=== PATIENT | female | born 1995 | race Caucasian/White ===

== ENCOUNTER 2025-01-22 19:03 | Emergency (ER) | payer OTHER ==
[~2025-01-22] VITALS: Ht 162.6 cm; Wt 78.6 kg
[2025-01-22 19:27] VITALS: BP 119/80; PULSE 70; RESP 14; TEMP 98.105288; O2SAT 97
[2025-01-22] MEDS ORDERED: AMOX500C2 PO (19:30)
[2025-01-22] MEDS ORDERED: IBUP-1492 PO (19:30)
== END 2025-01-22 19:57 | disposition home or self-care (01) ==
LOC: EMS 19:03
DX: H65.92 Unspecified nonsuppurative otitis media, left ear (principal)
CPT/HCPCS: 99283; Z7502